=== PATIENT | female | born 1990 | race African-American/Black ===

== ENCOUNTER 2025-01-18 10:05 | Emergency (ER) | payer OTHER, SELFPAY ==
[2025-01-18 10:16] VITALS: BP 143/87
[2025-01-18 11:56] LABS: % Basophils 0.8 % (0-2); % Eosinophils 1.7 % (0-6); % Immature Granulocytes 0.1 % (0-0.5); % Lymphocytes 23.5 % (20.5-51.1); % Monocytes 7.6 % (1.7-9.3); % Neutrophils 66.3 % (42.2-75.2); Absolute Basophils 0.1 10^3/uL (0-0.2); Absolute Eosinophils 0.1 10^3/uL (0-0.7); Absolute Lymphocytes 1.7 10^3/uL (1.2-3.4); Absolute Monocytes 0.5 10^3/uL (0.1-0.6); Absolute Neutrophils 4.7 10^3/uL (1.4-6.5); Hematocrit 32.2 % (37.0-47.0); Hemoglobin 11.1 g/dL (12.0-16.0); Mean Corp Hgb Conc. 34.5 g/dL (33.0-37.0); Mean Corpuscular Hgb 28.5 pg (27.0-31.0); Mean Corpuscular Volume 82.8 fL (81.0-99.0); Mean Platelet Volume 9.1 fL (7.4-10.4); Nucleated Red Blood Cells % 0 %; Platelet Count 264 10^3/uL (130-400); Red Blood Cell Count 3.89 10^6/uL (4.20-5.40); Red Cell Dist. Width 13.2 % (11.5-14.5); White Blood Cell Count 7.1 10^3/uL (4.8-10.8)
--- NOTE | 2025-01-18 14:24 | ED.GENMED ---
History of Present Illness
General
Chief Complaint: Problems
Source: patient
Exam Limitations: none
Time Seen by Provider: 01/18/25 11:10
Nursing documentation reviewed up to this point in time: agreed with
History of Present Illness
History of Present Illness:
34-year-old female presents Emergency Department due to an ultrasound that did not show heart rate or activity but showed a yolk sac with small pole. She denies any pain or vaginal bleeding.
Past History
Past History
ED Past Medical History: Other (Crohn's disease)
ED Past Surgical History: Bowel resection, and Other
Social History
Tobacco: Non-smoker
Alcohol: None
Drug: None
Personal: Other (Legally )
Living: with family
Employment: Employed
Review of Systems
Review of Systems
Allergies reviewed?: Yes
All Other Systems: Not applicable
Constitutional: Reports no symptoms
EENT: Reports no symptoms
Respiratory: Reports no symptoms
Cardiac: Reports no symptoms
ABD/GI: Reports no symptoms
: Reports no symptoms
Musculoskeletal: Reports no symptoms
Skin: Reports no symptoms
Neurological: Reports no symptoms
Endocrine: Reports no symptoms
Hematologic/Lymphatic: Reports no symptoms
Psychiatric: Reports no symptoms
Phy Exam
Physical Exam
Physical Exam:
Physical Exam
General: no apparent distress, not acutely ill
Neck: supple. no meningeal signs. normal posterior pharynx
Heart: s1/s2 regular rate and rhythm, no murmur. equal radial
pulses.
HEENT: Pupils equal round reactive to light, EOMI
Lungs: no acute respiratory distress. clear bilaterally
Abdomen: normal bowel sounds. not tender. no CVAT
Neuro: alert and oriented. no focal neurological deficits cranial nerves II through XII intact
Skin: no rash
Psychiatric: well kept. interactive and cooperative
Extremities: no edema. no calf tenderness. negative homans. good distal pulses
Course
Orders/Labs/Results
Orders:
Orders
01/18/25 11:19
US W Transvaginal Urgent
Comment: for placement services
Reason For Exam: pelvic cramping 8 wks
01/18/25 11:40
Type+Screen Urgent
BBK Wristband Number:
Beta HCG Quantitative Urgent
Is this a screen?: No
Complete Blood Count/With Diff Urgent
01/18/25 12:55
ABO2 Routine
BBK Wristband Number:
Associate notified that ABO2 has been ordered: Y
Date: 01/18/25
Time: 12:15
Electronics Production Supervisor ID: [id number]
Abnormal Lab Results
01/18/25
11:40
RBC 3.89 L 10^6/uL
(4.20-5.40)
Hgb 11.1 L g/dL
(12.0-16.0)
Hct 32.2 L %
(37.0-47.0)
01/18/25 11:40
Vital Signs
Initial and Last Documented VS:
Initial Vital Signs
Temp Pulse Resp BP Pulse Ox
98.5 F 88 16 143/87 100
01/18/25 10:16 01/18/25 10:16 01/18/25 10:16 01/18/25 10:16 01/18/25 10:16
Last Documented Vital Signs
Temp Pulse Resp BP Pulse Ox
98.5 F 88 16 143/87 100
01/18/25 10:16 01/18/25 10:16 01/18/25 10:16 01/18/25 10:16 01/18/25 10:16
Information
Weeks gestation: Weeks: (6-8)
Location: Location: ([facility]up)
MDM/Problems Addressed
Differential Diagnosis Includes:
Ectopic , blighted ovum
MDM/Problems Addressed:
34-year-old female with likely missed /blighted ovum. Asymptomatic. No signs of ectopic . Will discharge to follow-up with PATHOLOGY TRANSCRIPTIONIST. Return precautions given.
*Radiology
Radiology exam reviewed: radiology read reviewed (Ultrasound shows yolk sac but no cardiac activity)
*Pulse Oximetry
Patient hypoxic: no
*Critical Care Note
Total Time (30-74mins, 75-104mins- exclusive of procedures): Not Applicable
Patient Management
Discussion with other providers: Pastry Baker (PATHOLOGY TRANSCRIPTIONIST Dr. Lau)
Escalation/DeEscalation of care consider admission/obs:
Admit not indicated
ED Attending Note
-
Portions of this chart may have been created with voice recognition software.� Occasional wrong word or��sound alike� substitutions may have occurred due to the inherent limitations of voice recognition software.
Discharge Plan
Departure
Patient Disposition: Home (Routine Discharge)
Date of Disposition: 01/18/25
Time of Disposition: 14:30
Patient with high blood pressure during this ER visit?: Yes
Condition: Good
Discharge Problem:
Missed
Instructions: Threatened Miscarriage (DC), BLOOD PRESSURE
Prescriptions:
No Action
prednisone 20 mg tablet
60 mg PO DAILY 14 Days Qty: 42 0RF
naproxen 500 mg tablet
500 mg PO BID 7 Days Qty: 14 0RF
Referrals:
UNKNOWN - PT DOES,NOT KNOW [Family Provider] -
Activity Restrictions/Additional Instructions:
Follow up with your OB as scheduled. Return for any concerns.
Interventions
Interventions:
*Risk Screen - Suicide Last Done: 01/18/25 10:16
*General Assessment Last Done: 01/18/25 11:55
*Neglect/Abuse Screening Last Done: 01/18/25 10:16
*ED- Fall Risk Assessment Last Done: 01/18/25 11:55
*ED COVID-19 Vaccine History Last Done: 01/18/25 11:55
ED-Female Genitourinary Assessment Last Done: 01/18/25 11:55
Discharge Date and Time
Print Language: DOMINICAN
== END 2025-01-18 14:48 | disposition home or self-care (01) ==
LOC: EMR 10:05
PROVIDERS: EMERGENCY PHYSICIAN Emergency Medicine
DX: O02.1 Missed abortion (principal); R03.0 Elevated blood-pressure reading, without diagnosis of hypertension
CPT/HCPCS: 99284; 76801; 76817; 84702; 85025; 86850; 86900; 86901

== ENCOUNTER 2025-01-25 17:55 | Emergency (ER) | payer OTHER, SELFPAY ==
[2025-01-25 17:58] VITALS: BP 128/82
[2025-01-25 18:20] LABS: % Basophils 0.4 % (0-2); % Eosinophils 1.4 % (0-6); % Immature Granulocytes 0.3 % (0-0.5); % Lymphocytes 18.7 % (20.5-51.1); % Monocytes 5.8 % (1.7-9.3); % Neutrophils 73.4 % (42.2-75.2); Absolute Eosinophils 0.1 10^3/uL (0-0.7); Absolute Lymphocytes 1.8 10^3/uL (1.2-3.4); Absolute Monocytes 0.6 10^3/uL (0.1-0.6); Absolute Neutrophils 7.2 10^3/uL (1.4-6.5); Hematocrit 31.9 % (37.0-47.0); Hemoglobin 10.8 g/dL (12.0-16.0); Mean Corp Hgb Conc. 33.9 g/dL (33.0-37.0); Mean Corpuscular Hgb 28.4 pg (27.0-31.0); Mean Corpuscular Volume 83.9 fL (81.0-99.0); Mean Platelet Volume 9.4 fL (7.4-10.4); Nucleated Red Blood Cells % 0 %; Platelet Count 257 10^3/uL (130-400); Red Cell Dist. Width 12.9 % (11.5-14.5); White Blood Cell Count 9.8 10^3/uL (4.8-10.8)
[2025-01-25 18:32] LABS: HCG, Serum Qualitative Screen Positive
[2025-01-25 18:41] LABS: ALT (SGPT) 11 U/L (0-35); AST (SGOT) 16 U/L (14-36); Albumin 4.4 g/dl (3.5-5.0); Alkaline Phosphatase 58 U/L (38-126); Blood Urea Nitrogen 10 mg/dl (7-17); Calcium 9.2 mg/dl (8.4-10.2); Carbon Dioxide 23 mmol/L (22-30); Chloride 107 mmol/L (98-107); Glucose 103 mg/dl (70-99); Potassium 3.5 mmol/L (3.5-5.1); Sodium 141 mmol/L (135-145); Total Bilirubin 0.4 mg/dl (0.2-1.3); Total Protein 7.4 g/dl (6.3-8.2); eGFR > 60.00
[2025-01-25 21:01] VITALS: BMI 24.3
[2025-01-25 21:02] VITALS: BP 116/78
[2025-01-25 22:00] VITALS: BP 116/84
--- NOTE | 2025-01-25 22:32 | ED.GENMED ---
History of Present Illness
<Jadyn Arrington NP - Last Filed: 01/25/25 22:49>
General
Chief Complaint: Vaginal Bleeding
Source: patient
Exam Limitations: none
Time Seen by Provider: 01/25/25 21:30
Nursing documentation reviewed up to this point in time: agreed with
History of Present Illness
History of Present Illness:
Patient to ED wtih complaint of vaginal bleeding and cramping. SHe was seen in ED 1 week ago for light bleeding. Sac visualized on US but no fetus identified. SHe was discharged home with information on possible miscarriage. States she started
bleeding heavily this weekend. Passed a large clot. Returnts to ED today because she is still bleeding and feeling cramps. No fever/chills, n/v.
Past History
<Jadyn Arrington NP - Last Filed: 01/25/25 22:49>
Past History
ED Past Medical History: Other (Crohn's disease)
ED Past Surgical History: Bowel resection, and Other
Social History
Tobacco: Non-smoker
Alcohol: None
Drug: None
Personal: Other (Legally )
Living: with family
Employment: Employed
Review of Systems
<Jadyn Arrington GRAZING EXAMINER - Last Filed: 01/25/25 22:49>
Review of Systems
Allergies reviewed?: Yes
All Other Systems: ROS reviewed and negative except as documented in HPI and ROS
Constitutional: Reports no symptoms
EENT: Reports no symptoms
Respiratory: Reports no symptoms
Cardiac: Reports no symptoms
ABD/GI: Reports no symptoms
: Reports other (Vaginal lbleeding, cramping)
Musculoskeletal: Reports no symptoms
Skin: Reports no symptoms
Neurological: Reports no symptoms
Psychiatric: Reports no symptoms
Phy Exam
<Jadyn Arrington NP - Last Filed: 01/25/25 22:49>
General Physical Exam
General Presentation: well appearing and no apparent distress
General age: appears stated age
General Skin: warm and dry
General Habitus: normal
General Mental: alert
Gastrointestinal Exam
Gastrointestinal Exam: normal bowel sounds, non tender, soft, no organomegaly, no pulsatile mass, non distended and no cva tenderness
Genitourinary Exam Female
Exam Female: vaginal bleeding
Vaginal Exam: blood
Vaginal Bleeding: moderate
Visual exam of cervix: os closed
Musculoskeletal Exam
Musculoskeletal Exam: full ROM and neuro vasc intact
Skin Exam
Skin Exam: normal color, warm/dry and no rash
Psychiatric Exam
Psychiatric Exam: normal mood/affect
Course
<Jadyn Arrington GRAZING EXAMINER - Last Filed: 01/25/25 22:49>
Orders/Labs/Results
Orders:
Orders
01/25/25 18:01
Test Result ONCE
01/25/25 18:07
Type+Screen Urgent
Beta HCG Quantitative Urgent
Comment: ADD ON
Complete Blood Count/With Diff Urgent
Comprehensive Metabolic Panel Urgent
HCG, Serum Qualitative Screen Urgent
01/25/25 18:51
Add On- LAB Urgent
Tests Added?: hcg quant
01/26/25 00:00
US 1st Trimester Urgent
Reason For Exam: bleeding
Abnormal Lab Results
01/25/25
18:07
RBC 3.80 L 10^6/uL
(4.20-5.40)
Hgb 10.8 L g/dL
(12.0-16.0)
Hct 31.9 L %
(37.0-47.0)
Absolute Neuts (auto) 7.2 H 10^3/uL
(1.4-6.5)
Lymphocytes % 18.7 L %
(20.5-51.1)
Glucose 103 H mg/dl
(70-99)
01/25/25 18:07
01/25/25 18:07
Vital Signs
Initial and Last Documented VS:
Initial Vital Signs
Temp Pulse Resp BP Pulse Ox
99.4 F 83 16 128/82 100
01/25/25 17:58 01/25/25 17:58 01/25/25 17:58 01/25/25 17:58 01/25/25 17:58
Last Documented Vital Signs
Temp Pulse Resp BP Pulse Ox
99.4 F 75 18 114/74 99
01/25/25 17:58 01/25/25 21:03 01/25/25 21:03 01/26/25 01:00 01/26/25 01:00
<Margaux Garrison, DO - Last Filed: 01/26/25 01:14>
Orders/Labs/Results
Orders:
Orders
01/25/25 18:01
Test Result ONCE
01/25/25 18:07
Type+Screen Urgent
Beta HCG Quantitative Urgent
Comment: ADD ON
Complete Blood Count/With Diff Urgent
Comprehensive Metabolic Panel Urgent
HCG, Serum Qualitative Screen Urgent
01/25/25 18:51
Add On- LAB Urgent
Tests Added?: hcg quant
01/26/25 00:00
US 1st Trimester Urgent
Reason For Exam: bleeding
Abnormal Lab Results
01/25/25
18:07
RBC 3.80 L 10^6/uL
(4.20-5.40)
Hgb 10.8 L g/dL
(12.0-16.0)
Hct 31.9 L %
(37.0-47.0)
Absolute Neuts (auto) 7.2 H 10^3/uL
(1.4-6.5)
Lymphocytes % 18.7 L %
(20.5-51.1)
Glucose 103 H mg/dl
(70-99)
01/25/25 18:07
01/25/25 18:07
Vital Signs
Initial and Last Documented VS:
Initial Vital Signs
Temp Pulse Resp BP Pulse Ox
99.4 F 83 16 128/82 100
01/25/25 17:58 01/25/25 17:58 01/25/25 17:58 01/25/25 17:58 01/25/25 17:58
Last Documented Vital Signs
Temp Pulse Resp BP Pulse Ox
99.4 F 75 18 114/74 99
01/25/25 17:58 01/25/25 21:03 01/25/25 21:03 01/26/25 01:00 01/26/25 01:00
<Margaux Garrison DO - Last Filed: 01/26/25 01:14>
*Radiology
Radiology exam reviewed: radiology read reviewed
*Pulse Oximetry
Patient hypoxic: no
*Critical Care Note
Total Time (30-74mins, 75-104mins- exclusive of procedures): Not Applicable
<Jadyn Arrington NP - Last Filed: 01/25/25 22:49>
Update Note
Update Note:
Patient to ED wtih complaint of heavy vaginal bleeding x3 days. Reports passing a large clot this weekend. She was seen in ED 1 week ago with complaint of light bleeding. HCG tonight declining. US ordered.
ED Attending Note
<Jadyn Arrington NP - Last Filed: 01/25/25 22:49>
-
Portions of this chart may have been created with voice recognition software.� Occasional wrong word or��sound alike� substitutions may have occurred due to the inherent limitations of voice recognition software.
<Margaux Garrison, DO - Last Filed: 01/26/25 01:14>
ED Attending Note
Patient seen and examined by attending physician: Yes
I performed a history and physical exam of patient and discussed management with resident, I reviewed resident's note and agree with documented findings and plan of care.: Yes
ED Attending Note:
Patient currently approximately 6 weeks , presents with increased bleeding, lower abdominal cramping, past larger clot earlier this evening.
Bleeding has since improved with no further clot passage.
hCG is trending down from 1 week ago. Previously 26,249, now 3900. This is consistent with early loss.
Abdomen is soft without appreciable tenderness.
She remains hemodynamically stable.
Hemoglobin 10.8, 11.11-week ago.
Blood group and type�a positive.
Awaiting ultrasound.
01:10
Ultrasound shows no IUP nor gestational sac identified. Endometrial stripe measures 8 mm in thickness with no internal flow nor findings to suggest vascular retained products of conception. This is compatible with spontaneous . No
secondary signs of ectopic . Ovaries are unremarkable bilaterally. No free fluid.
Patient resting comfortably. Marked improvement in bleeding, no further abdominal pain or cramping.
Will discharge to home with plan to follow-up with her primary highway landscape architect, [facility] in [place].
Recommend pelvic rest.
Tylenol versus ibuprofen as needed for pain.
Discussed importance of stay well-hydrated on a daily basis.
Return precautions discussed.
Discharge Plan
Departure
Patient Disposition: Home (Routine Discharge)
Date of Disposition: 01/26/25
Time of Disposition: 01:09
Patient with high blood pressure during this ER visit?: No
Condition: Good
Discharge Problem:
Complete miscarriage
Instructions: Miscarriage (DC)
Prescriptions:
No Action
prednisone 20 mg tablet
60 mg PO DAILY 14 Days Qty: 42 0RF
naproxen 500 mg tablet
500 mg PO BID 7 Days Qty: 14 0RF
Referrals:
UNKNOWN - PT DOES,NOT KNOW [Family Provider] -
Stand Alone Forms: Return to Work
Activity Restrictions/Additional Instructions:
Stay well-hydrated on a daily basis.
You may take Tylenol versus ibuprofen as needed for pain.
Over the next at least 4 weeks, nothing in your vagina, no tampons, no douching, no vaginal sex.
Follow-up with your highway landscape architect this week for recheck.
Interventions
Interventions:
*Risk Screen - Suicide Last Done: 01/25/25 18:01
*General Assessment Last Done: 01/25/25 21:01
*Neglect/Abuse Screening Last Done: 01/25/25 18:01
*ED- Fall Risk Assessment Last Done: 01/25/25 20:52
*ED COVID-19 Vaccine History Last Done: 01/25/25 20:52
ED-Female Genitourinary Assessment Last Done: 01/25/25 21:01
Discharge Date and Time
Print Language: NAMIBIAN
[2025-01-25 23:00] VITALS: BP 112/72
[2025-01-26] VITALS: BP 110/71
[2025-01-26 01:00] VITALS: BP 114/74
== END 2025-01-26 01:39 | disposition home or self-care (01) ==
LOC: EMR 17:55
PROVIDERS: Emergency Medicine; EMERGENCY PHYSICIAN Emergency Medicine
DX: O03.9 Complete or unspecified spontaneous abortion without complication (principal)
CPT/HCPCS: 99284; 76801; 80053; 84702; 84703; 85025; 86850; 86900; 86901